=== PATIENT | female | born 1935 | race Caucasian/White ===

== ENCOUNTER → 2023-09-14 13:16 | Outpatient (BNVA) | payer MEDICARE, BC, SELFPAY | PROVIDERS: Visit Provider Internal Medicine Nephrology | DX: I12.9 Hypertensive chronic kidney disease with stage 1 through stage 4 chronic kidney disease, or unspecified chronic kidney disease (principal); N18.31 Chronic kidney disease, stage 3a; N28.89 Other specified disorders of kidney and ureter | CPT/HCPCS: 99212 ==

== ENCOUNTER 2023-09-14 13:49 | Outpatient (AMB) | payer MEDICARE, BC, SELFPAY ==
[2023-09-14 13:21] VITALS: BP 158/80; PULSE 74; O2SAT 97; BMI 38.4
--- NOTE | 2023-09-14 13:21 | HO.NEPHOV_ITS ---
HPI HPI Comments History of Present Illness Details I had the privilege of seeing Paola in follow-up of her chronic kidney disease and hypertension. She has recently had a pacemaker put in and ever since her energy levels are better. She is known to have renal mass and is closely followed up by Dr. Lebron. Her diltiazem and lisinopril had been discontinued. Her blood pressure had been a bit labile lately. She denies any chest pain, shortness of breath, paroxysmal nocturnal dyspnea, orthopnea, pedal edema, orthostatic symptoms, weight loss, night sweats, hematuria. She does not take any nonsteroidal anti-inflammatories. She was accompanied by her son during this visit. [facility] Medical History (Updated 09/14/23 @ 20:34 by George Ayala MD) Pacemaker (~07/2023) Hypertension Chronic kidney disease, stage 3b Family History (Updated 09/14/23 @ 13:26 by Valeria Andino) Father Hypertension Social History (Updated 09/14/23 @ 13:25 by Valeria Andino) Alcohol intake: never Vital Signs 09/14/23 13:21 Height 5 ft 5 in Weight 231 lb BMI 38.4 BP 158/80 H Blood Pressure Location Lt brachial Position Sitting Pulse 74 Pulse Source Pulse Oximeter Pulse Oximetry (%) 97 Oxygen Delivery Method Room Air Physical Exam Vital Signs: Last Vital Signs Pulse 74 09/14/23 13:21 BP 158/80 H 09/14/23 13:21 Pulse Ox 97 09/14/23 13:21 Oxygen Delivery Method Room Air 09/14/23 13:21 BMI result Body Mass Index 38.4 Const General: comfortable and no acute distress Orientation/consciousness: patient oriented x3 HEENT Head: Yes normocephalic Mouth: Normal oral and palatal mucosa present Eyes EOM: EOMs intact bilaterally Neck Neck: Yes supple Resp Auscultation: clear to auscultation bilaterally Cardio Jugular venous distension: no JVD Rate: regular rate GI Palpation (GI): Soft to palpation Auscultation: normal bowel sounds General: Yes no CVA tenderness Back/Spine/Pelvis Back: no CVA tenderness Skin General skin exam: no rashes or lesions noted Neuro General: patient oriented x3 and moves all extremities Extrem General: Yes no pedal edema Assessment & Plan Assessment & Plan (1) Hypertension: Code(s): I10 - Essential (primary) hypertension Qualifiers: Hypertension type: primary hypertension Qualified Code(s): I10 - Essential (primary) hypertension (2) CKD (chronic kidney disease) stage 3, GFR 30-59 ml/min: Code(s): N18.30 - Chronic kidney disease, stage 3 unspecified Qualifiers: Chronic kidney disease stage 3 subtype: stage 3a (GFR 45-59) Qualified Code(s): N18.31 - Chronic kidney disease, stage 3a (3) Renal mass: Code(s): N28.89 - Other specified disorders of kidney and ureter Louie Guevara has stage 3 chronic kidney disease. Her renal functions are pretty stable. Her blood pressure is not well controlled. She had been on DOLORES inhibitor and calcium channel julianne in the past which had been discontinued. She just takes metoprolol. She monitors her blood pressure pretty closely at home. She has lost significant weight. I started her on amlodipine 2.5 mg once daily. She closely follows up with the Dr. Lebron her urologist for her renal mass. She does not have any B symptoms. She has a pacemaker and her heart rate is well controlled. I did not make any other medication changes today. I reiterated the fact that we may have to adjust the dose of amlodipine if her blood pressure is not consistently at goal. I ordered follow-up blood work and follow-up appointment was given. Orders: Orders Blood Urea Nitrogen Today I10 - Essential (primary) hypertension, N18.30 - Chronic kidney disease, stage 3 unspecified Electrolytes Today I10 - Essential (primary) hypertension, N18.30 - Chronic kidney disease, stage 3 unspecified Creatinine Today I10 - Essential (primary) hypertension, N18.30 - Chronic kidney disease, stage 3 unspecified Medications: New amlodipine 2.5 mg PO DAILY 90 tabs 3RF Coding Level of Care Code Est Pt Level 4 (48671) Diagnoses Primary hypertension I10 Hypertension type: primary hypertension Stage 3a chronic kidney disease N18.31 Chronic kidney disease stage 3 subtype: stage 3a (GFR 45-59) Renal mass N28.89 Results Reviewed Nephrology Results: No Data to Display
== END 2023-09-14 14:13 | disposition home or self-care (01) ==
PROVIDERS: Visit Provider Internal Medicine Nephrology
DX: I10 Essential (primary) hypertension (principal); N18.31 Chronic kidney disease, stage 3a; N28.89 Other specified disorders of kidney and ureter
CPT/HCPCS: 99214

== ENCOUNTER 2023-12-28 13:35 | Outpatient (AMB) | payer MEDICARE, BC, SELFPAY ==
[2023-12-28 13:44] VITALS: BP 132/84; PULSE 98; O2SAT 96; BMI 38.4
--- NOTE | 2023-12-28 13:44 | HO.NEPHOV_ITS ---
Vital Signs 12/28/23 13:44 Height 5 ft 5 in Weight 231 lb BMI 38.4 BP 132/84 Blood Pressure Location Rt radial Position Sitting Pulse 98 Pulse Source Pulse Oximeter Pulse Oximetry (%) 96 Oxygen Delivery Method Room Air Intake Visit Reasons: 3 mon follow up/ Conf w/Son Nurse Consultant Required: No Accompanied by: Son Allergies adhesive tape Allergy (Verified 12/28/23 13:46) Unknown latex Allergy (Verified 12/28/23 13:46) Unknown Sulfa (Sulfonamide Antibiotics) Allergy (Verified 12/28/23 13:46) Unknown HPI Comments Details: I had the privilege of seeing Paola in follow-up of her chronic kidney disease and hypertension. She has recently had a pacemaker put in and ever since her energy levels are better. She is known to have renal mass and is closely followed up by Dr. Lebron. Her diltiazem and lisinopril had been discontinued. Her blood pressure had been a bit labile lately. She denies any chest pain, shortness of breath, paroxysmal nocturnal dyspnea, orthopnea, pedal edema, orthostatic symptoms, weight loss, night sweats, hematuria. She does not take any nonsteroidal anti-inflammatories. She was accompanied by her son during this visit. [facility] Medical History (Updated 09/14/23 @ 20:34 by George Ayala MD) Pacemaker (~07/2023) Hypertension Chronic kidney disease, stage 3b Family History Father Hypertension Social History Alcohol intake: never Physical Exam Vital Signs: Last Vital Signs Pulse 98 12/28/23 13:44 BP 132/84 12/28/23 13:44 Pulse Ox 96 12/28/23 13:44 Oxygen Delivery Method Room Air 12/28/23 13:44 BMI result Body Mass Index 38.4 Const General: comfortable and no acute distress Orientation/consciousness: patient oriented x3 HEENT Head: Yes normocephalic Mouth: Normal oral and palatal mucosa present Eyes EOM: EOMs intact bilaterally Neck Neck: Yes supple Resp Auscultation: clear to auscultation bilaterally Cardio Jugular venous distension: no JVD Rate: regular rate GI Palpation (GI): Soft to palpation Auscultation: normal bowel sounds General: Yes no CVA tenderness Back/Spine/Pelvis Back: no CVA tenderness Skin General skin exam: no rashes or lesions noted Neuro General: patient oriented x3 and moves all extremities Extrem General: Yes no pedal edema Results Reviewed Nephrology Results: No Data to Display Assessment & Plan Assessment & Plan (1) CKD (chronic kidney disease) stage 3, GFR 30-59 ml/min: Code(s): N18.30 - Chronic kidney disease, stage 3 unspecified Category: Medical Qualifiers: Chronic kidney disease stage 3 subtype: stage 3a (GFR 45-59) Qualified Code(s): N18.31 - Chronic kidney disease, stage 3a (2) Hypertension: Code(s): I10 - Essential (primary) hypertension Category: Medical Qualifiers: Hypertension type: primary hypertension Qualified Code(s): I10 - Essential (primary) hypertension (3) Renal mass: Code(s): N28.89 - Other specified disorders of kidney and ureter Category: Medical Plan Paola has stage 3 chronic kidney disease. Her renal functions are pretty stable. Her blood pressure is not well controlled. She had been on DOLORES inhibitor and calcium channel julianne in the past which had been discontinued. She just takes metoprolol. She monitors her blood pressure pretty closely at [facility]. She has lost significant weight. She should continue on amlodipine 2.5 mg once daily. She closely follows up with the Dr. Lebron her urologist for her renal mass ( has an appointment in Feb ). She does not have any B symptoms. She has a pacemaker and her heart rate is well controlled. I did not make any other medication changes today. I ordered follow-up blood work and follow-up appointment was given. Orders: Orders Creatinine Today I10 - Essential (primary) hypertension, N18.31 - Chronic kidney disease, stage 3a, N28.89 - Other specified disorders of kidney and ureter Electrolytes Today I10 - Essential (primary) hypertension, N18.31 - Chronic kid conor disease, stage 3a, N28.89 - Other specified disorders of kidney and ureter Blood Urea Nitrogen Today I10 - Essential (primary) hypertension, N18.31 - Chronic kidney disease, stage 3a, N28.89 - Other specified disorders of kidney and ureter Coding Level of Care Code Est Pt Level 4 (88498) Diagnoses Stage 3a chronic kidney disease N18.31 Chronic kidney disease stage 3 subtype: stage 3a (GFR 45-59) Primary hypertension I10 Hypertension type: primary hypertension Renal mass N28.89
== END 2023-12-28 14:21 | disposition home or self-care (01) ==
PROVIDERS: Visit Provider Internal Medicine Nephrology
DX: N18.31 Chronic kidney disease, stage 3a (principal); I10 Essential (primary) hypertension; N28.89 Other specified disorders of kidney and ureter
CPT/HCPCS: 99214

== ENCOUNTER → 2023-12-28 13:35 | Outpatient (BNVA) | payer MEDICARE, BC, SELFPAY | PROVIDERS: Visit Provider Internal Medicine Nephrology | DX: I12.9 Hypertensive chronic kidney disease with stage 1 through stage 4 chronic kidney disease, or unspecified chronic kidney disease (principal); N18.31 Chronic kidney disease, stage 3a; N28.89 Other specified disorders of kidney and ureter | CPT/HCPCS: 99212 ==

== ENCOUNTER 2024-07-30 11:30 | Outpatient (AMB) | payer MEDICARE, BC, SELFPAY ==
--- NOTE | 2024-07-30 11:41 | HO.NEPHOV ---
Vital Signs 07/30/24 11:42 Height 5 ft 5 in Weight 240 lb BMI 39.9 BP 160/90 H Blood Pressure Location Lt brachial Position Sitting Pulse 99 Pulse Source Pulse Oximeter Pulse Oximetry (%) 96 Oxygen Delivery Method Room Air Intake Visit Reasons: follow up/ [facility] Human Services Manager Required: No Accompanied by: Son Allergies adhesive tape Allergy (Verified 07/30/24 11:42) Unknown latex Allergy (Verified 07/30/24 11:42) Unknown Sulfa (Sulfonamide Antibiotics) Allergy (Verified 07/30/24 11:42) Unknown HPI Comments Details: I had the privilege of seeing Paola in follow-up of her chronic kidney disease and hypertension. She had a pacemaker put in and ever since her energy levels are better. She is known to have renal mass and is closely followed up by Dr. Lebron. Her blood pressure had been a bit labile lately. She denies any chest pain, shortness of breath, paroxysmal nocturnal dyspnea, orthopnea, pedal edema, orthostatic symptoms, weight loss, night sweats, hematuria. She does not take any nonsteroidal anti-inflammatories. She was accompanied by her son during this visit. [facility] Medical History (Updated 09/14/23 @ 20:34 by George Ayala MD) Pacemaker (~07/2023) Hypertension Chronic kidney disease, stage 3b Family History Father Hypertension Social History Alcohol intake: never Review of Systems Const All systems reviewed & are unremarkable except as noted in HPI and below Physical Exam Vital Signs: Last Vital Signs Pulse 99 07/30/24 11:42 BP 160/90 H 07/30/24 11:42 Pulse Ox 96 07/30/24 11:42 Oxygen Delivery Method Room Air 07/30/24 11:42 BMI result Body Mass Index 39.9 Const General: comfortable and no acute distress Orientation/consciousness: patient oriented x3 HEENT Head: Yes normocephalic Mouth: Normal oral and palatal mucosa present Eyes EOM: EOMs intact bilaterally Neck Neck: Yes supple Resp Auscultation: clear to auscultation bilaterally Cardio Jugular venous distension: no JVD Rate: regular rate GI Palpation (GI): Soft to palpation Auscultation: normal bowel sounds General: Yes no CVA tenderness Back/Spine/Pelvis Back: no CVA tenderness Skin General skin exam: no rashes or lesions noted Neuro General: patient oriented x3 and moves all extremities Extrem General: Yes no pedal edema Results Reviewed Nephrology Results: No Data to Display Assessment & Plan Assessment & Plan (1) CKD (chronic kidney disease) stage 3, GFR 30-59 ml/min: Code(s): N18.30 - Chronic kidney disease, stage 3 unspecified Category: Medical Qualifiers: Chronic kidney disease stage 3 subtype: stage 3a (GFR 45-59) Qualified Code(s): N18.31 - Chronic kidney disease, stage 3a (2) Hypertension: Code(s): I10 - Essential (primary) hypertension Category: Medical Qualifiers: Hypertension type: primary hypertension Qualified Code(s): I10 - Essential (primary) hypertension (3) Renal mass: Code(s): N28.89 - Other specified disorders of kidney and ureter Category: Medical Plan Paola has stage 3 chronic kidney disease. Her renal functions are pretty stable. Her blood pressure is not well controlled. She just takes metoprolol. She monitors her blood pressure pretty closely at home. She should continue on amlodipine 2.5 mg once daily. She closely follows up with the Dr. Lebron her urologist for her renal mass ( has an appointment in Feb ). She does not have any B symptoms. She has a pacemaker and her heart rate is well controlled. I did not make any other medication changes today. I ordered follow-up blood work and follow-up appointment was given. Orders: Orders Electrolytes 6 Months I10 - Essential (primary) hypertension, N18.31 - Chronic kidney disease, stage 3a, N28.89 - Other specified disorders of kidney and ureter Creatinine 6 Months I10 - Essential (primary) hypertension, N18.31 - Chronic kidney disease, stage 3a, N28.89 - Other specified disorders of kidney and ureter Blood Urea Nitrogen 6 Months I10 - Essential (primary) hypertension, N18.31 - Chronic kidney disease, stage 3a, N28.89 - Other specified disorders of kidney and ureter Medications: Refilled amlodipine 2.5 mg PO DAILY 90 tabs 3RF Coding Level of Care Code Est Pt Level 4 (11064) Diagnoses Stage 3a chronic kidney disease N18.31 Chronic kidney disease stage 3 subtype: stage 3a (GFR 45-59) Primary hypertension I10 Hypertension type: primary hypertension Renal mass N28.89
[2024-07-30 11:42] VITALS: BP 160/90; PULSE 99; O2SAT 96; BMI 39.9
--- OUTSIDE RECORDS SUMMARY | 2024-07-30 12:43 | XMS_ITS ---
Author Name [facility] Organization Unknown Results Test Name/Text Value Interpretation Date Range Source Troponin T SerPl-mCnc 11ng/L Normal [id number] - 15 [facility] Delta 1 Normal [id number] - 3 [facility] Troponin T SerPl-mCnc 12ng/L Normal [id number] - 15 [facility] Delta Normal [id number] - 3 [facility] Globulin Ser Calc-mCnc 3.5g/dL Normal [id number] 1.5 - 3.9 [facility] ALT SerPl-cCnc 43U/L Normal [id number] 10 - 50 [facility] CCT AST SerPl-cCnc 31U/L Normal [id number] 10 - 50 [facility] CCT GFR/BSA.pred SerPlBld VUC-WCS-MhDBra 49 Below low normal [id number] 59 - [facility] Albumin SerPl-mCnc 3.8g/dL Normal [id number] 3.4 - 4. 8 [facility] Albumin/Glob SerPl 1.1Ratio Normal [id number] 1 - 3 [facility] Creat SerPl-mCnc 1.1mg/dL Normal [id number] 0.4 - 1.1 [facility] Bilirub SerPl-mCnc 1mg/dL Normal [id number] 0.2 - 1 [facility] Anion Gap Bld-sCnc 14 Normal [id number] 7 - 17 [facility] Sodium SerPl-sCnc 141mmol/L Normal [id number] 136 - 145 [facility] Potassium SerPl-sCnc 4.7mmol/L Normal [id number] 3.4 - 5.3 [facility] Chloride SerPl-sCnc 100mmol/L Normal [id number] 98 - 10 7 [facility] Glucose SerPl-mCnc 130mg/dL Above high normal [id number] 65 - 99 [facility] Prot SerPl-mCnc 7.3g/dL Normal [id number] 6.3 - 8.3 H [facility] BUN/Creat SerPl 28Ratio Above high normal [id number] 10 - 25 [facility] Calcium SerPl-mCnc 10.1mg/dL Normal [id number] 8.7 - 10 .5 [facility] CO2 SerPl-sCnc 27mmol/L Normal [id number] 22 - 33 HH CCT BUN SerPl-mCnc 31mg/dL Above high normal [id number] 8 - 21 [facility] ALP SerPl-cCnc 149U/L Above high normal [id number] 32 - 122 [facility] Imm Granulocytes/leuk NFr Bld Auto 0.3% Normal [id number] [facility] Lymphocytes/leuk NFr Bld Auto 19.5% Normal [id number] [facility] PMV Bld Auto 10.9fL Normal [id number] 7.5 - 12.[address] Monocytes num Bld Auto 0.6Thou/uL Normal [id number] 0.2 - 1.5 [facility] Hct VFr Bld Auto 49.8% Above high normal [id number] 35 - 47 [facility] Neutrophils num Bld Auto 6.18Thou/uL Normal [id number] 2 - 7.5 [facility] Neutrophils/leuk NFr Bld Auto 69.7% Normal [id number] [facility] Basophils/leuk NFr Bld Auto 0.7% Normal [id number] [facility] Basophils num Bld Auto 0.06Thou/uL Normal [id number] 0 - 0.2 [facility] Monocytes/leuk NFr Bld Auto 6.8% Normal [id number] [facility] Eosinophil num Bld Auto 0.27Thou/uL Normal [id number] 0 - 0.7 [facility] MCH RBC Qn Auto 32.4pg Above high normal [id number] 27 - 31 [facility] Eosinophil/leuk NFr Bld Auto 3% Normal [id number] [facility] Imm Granulocytes num Bld Auto 0.03Thou/uL Normal [id number] 0 - 0.1 [facility] RDW RBC Auto-Rto 13.1% Normal [id number] 11.5 - 14. 5 [facility] Platelet num Bld Auto 222Thou/uL Normal [id number] 150 - 450 [facility] MCHC RBC Auto-mCnc 33.7g/dL Normal [id number] 30 - 36 [facility] MCV RBC Auto 96fL Normal 910510620804 80 - 100 [facility] T WBC num Bld Auto 8.9Thou/uL Normal [id number] 4 - 11 [facility] RBC num Bld Auto 5.19Mil/uL Normal [id number] 4 - 5.4 [facility] Hgb Bld-mCnc 16.8g/dL Above high normal [id number] 11.7 - 15.7 [facility] Lymphocytes num Bld Auto 1.73Thou/uL Normal [id number] 1.5 - 4.5 [facility] POC Glucose 128mg/dL Above high normal [id number] 65 - 99 [facility] TROPONIN I HIGH SENSITIVE 33.48ng/L Normal [id number] 0 - 54 [facility] PRO B-TYPE NATRIURETIC PEPTIDE 2051pg/mL Above high normal [id number] 0 - 1800 [facility] SODIUM 139mmol/L Normal [id number] 136 - 145 [facility] 142mg/dL Above high normal [id number] 74 - 100 [facility] BUN 47mg/dL Above high normal [id number] 7 - 18 [facility] CHLORIDE 105mmol/L Normal [id number] 98 - 107 [facility] POTASSIUM SERUM 4.5mmol/L Normal [id number] 3.5 - 5.1 [facility] CO2 25mmol/L Normal [id number] 21 - 32 [facility] H CREATININE 1.47mg/dL Above high normal [id number] 0.55 - 1 .3 [facility] GFRE 36 Below low normal 476133859623 60 - [facility] TROPONIN I HIGH SENSITIVE 31.39ng/L Normal [id number] 0 - 54 [facility] PROTIME 15.2secs Above high normal [id number] 9 - 13 [facility] INR 1.4 Normal [id number] [facility] H WBC 11.2K/uL Above high normal [id number] 3.7 - 10. 3 [facility] ABSOLUTE GRANULOCYTES 9K/uL Above high normal [id number] 2.2 - 7.3 [facility] ABSOLUTE BASO 0.1K/uL Normal [id number] 0 - 0.2 [facility] RBC 5.19M/uL Normal [id number] 4 - 5.4 [facility] H IMMATURE GRANULOCYTES 0% Normal [id number] 0 - 0.45 [facility] EOSINOPHILS 1% Normal [id number] 0 - 6 [facility] MPV 11fL Normal [id number] 8 - 12 [facility] H ABSOLUTE MONOS 0.8K/uL Normal [id number] 0.2 - 1.5 CT [facility] BASOPHILS 1% Normal [id number] 0 - 2 [facility] H NUCLEATED RBC 0% Normal [id number] 0 - 0.2 [facility] MCV 93fL Normal [id number] 83 - 102 [facility] H MCH 31PG Normal [id number] 27 - 34 [facility] H HCT 48.5% Above high normal [id number] 36 - 46 [facility] ABSOLUTE LYMPHS 1.2K/uL Below low normal [id number] 1.5 - 4.9 [facility] GRANULOCYTES 80% Above high normal [id number] 23 - 7 8 [facility] MONOC[facility] 7% Normal [id number] 0 - 12 [facility] H ABSOLUTE EOS 0.1K/uL Normal [id number] 0 - 0.7 [facility] LYMPHS 11% Below low normal [id number] 16 - 50 [facility] ABSOLUTE IMMATURE GRANULOCYTES 0.1K/uL Normal [id number] 0 - 0.3 [facility] HGB 16.3g/dL Above high normal [id number] 12.1 - 15 .7 [facility] RDW 13.2% Normal [id number] 11.1 - 13.3 [facility] PLATELET COUNT 245K/uL Normal [id number] 150 - [address] [facility] MCHC 33.6g/dL Normal [id number] 31 - 36 [facility] H ABSOLUTE NUCLEATED RBC 0K/uL Normal [id number] 0 - 0.012 [facility] PATIENT FASTING? UNKNOWN Normal [id number] [facility] EPI CELLS 1+ Normal [id number] [facility] H MUCOUS PRESENT Critically abnormal [id number] - [facility] BACTERIA 1+ Critically abnormal [id number] - [facility] RBC 0/HPF Normal [id number] 0 - 0 [facility] H WBC 4/HPF Above high normal [id number] 0 - 0 [facility] BLOOD NEG Normal [id number] - [facility] H SPECIFIC GRAVITY 1.015 Normal [id number] 1.005 - 1. 03 [facility] UROBILINOGEN 0.2MG/DL Normal [id number] - [facility] NITRITE NEG Normal [id number] - [facility] H LEUK. ESTERASE SMALL Critically abnormal [id number] - [facility] GLUCOSE NEG Normal [id number] - [facility] H APPEARANCE CLEAR Normal [id number] - [facility] BILIRUBIN NEGATIVE Normal [id number] - [facility] H PROTEIN NEG Normal [id number] - [facility] H COLOR YELLOW Normal [id number] - [facility] H KETONES NEGATIVE Normal [id number] - [facility] H PH 6 Normal [id number] 5 - 8 [facility] H
--- OUTSIDE RECORDS SUMMARY | 2024-07-30 12:43 | XMS_ITS | Clinical Summary ---
Author Organization [address] [place] [address] [place] [phone] Phone Care Team Providers Care Principal Trainer Name Role Phone Yuki Corona MD Primary Care Provider [phone] Allergies Active Allergy Reactions Criticality Noted Date Comments Adhesive Tape-Silicones 03/15/2021 Adhesive Bandage Latex 03/15/2021 Sulfa (Sulfonamide Antibiotics) 09/2020 Medications metoprolol succinate (TOPROL-XL) 100 mg 24 hr tabletIndications :Sick sinus syndrome (CMS/HCC),Permane nt atrial fibrillation (CMS/HCC) TAKE 1 TABLET BY MOUTH EVERY DAY 90 tablet 3 4 Active amLODIPine (NORVASC) 2.5 mg tablet Take 1 Tablet by mouth daily. Active apixaban (Eliquis) 5 mg tablet Take 1 Tablet by mouth 2 times daily. 4 Active atorvastatin (LIPITOR) 20 mg tablet Take 20 mg by mouth daily. Active cholecalciferol (VITAMIN D-3) 25 mcg (1,000 unit) capsule Take 1 Capsule by mouth three times a week. Active Active Problems Problem Noted Date Diagnosed Date Elevated alkaline phosphatase level 08/17/2023 Pulmonary hypertension 08/17/2023 Pre-syncope 08/17/2023 Tachy-shaun syndrome 07/19/2023 CHF (congestive heart failure) 10/18/2022 Elevated troponin 10/18/2022 Lower extremity edema 10/18/2022 Overview (05/17/2024): Last Assessment & Plan: Her leg edema has been better now that she is lost weight. Again we trialed her on a diuretic and this worsened her kidney function. We will continue to monitor this off her diuretic. Dizzy 08/05/2022 Overview (05/17/2024): Last Assessment & Plan: We did discuss her dizzy spell. It is unclear what caused this. She did not sleep well the night before and this could have contributed to her symptoms. She does run a low heart rate and because of this have asked her to update a Holter monitor to further evaluate this. Her blood pressures have been stable and we will continue to monitor. Hypercholesterolemia 02/01/2022 HERIBERTO (obstructive sleep apnea) 07/30/2021 Overview (05/17/2024): Last Assessment & Plan: We did discuss her sleep apnea. It appears that this is been untreated. We did discuss the potential risks and consequences of untreated sleep apnea. She states that she was not able to wear the mask in the past. We did discuss that her our other pieces of equipment that she may be able to use. I have offered sending her for a repeat study or for an evaluation with a sleep specialist. She would like to think about it at this time and will let us know.She does understand the risk of untreated sleep apnea. Diabetes mellitus with stage 3 chronic kidney di sease 07/29/2021 Venous insufficiency 07/29/2021 Overview (05/17/2024): Last Assessment & Plan: Her leg edema has been better now that she is lost weight. Again we trialed her on a diuretic and this worsened her kidney function. We will continue to monitor this off her diuretic. Secondary peripheral vascular disease 07/29/2021 Atrial fibrillation 03/15/2021 Overview (05/17/2024): Last Assessment & Plan: Her atrial fibrillation has been well controlled. She is doing well on her Eliquis. We did do a Holter monitor which showed occasionally low heart rates. She did meet with Dr. Ricardo for evaluation. It was suggested that she have a implantable loop recorder placed. She has not had this done. She states that the office never called to set her up for this. I have ordered this for her so we can move forward with this. She is in agreement to having it done. She does understand the benefit of doing this. Diabetes mellitus 03/15/2021 Hypertension 03/15/2021 Overview (05/17/2024): Last Assessment & Plan: Her blood pressure is under good control on her current medications. We will continue her on these. She will continue on her lisinopril she is followed by Dr. Osborn for her kidney disease. LBBB (left bundle branch block) 03/15/2021 Overview (05/17/2024): Last Assessment & Plan: This is been stable. We will continue to monitor. Morbid obesity 03/15/2021 Bradycardia 12/25/2020 Overview (05/17/2024): Last Assessment & Plan: She does have a history of bradycardia. Of asked her to update a Holter monitor to make sure she is not having more significant bradycardia or bradycardia arrhythmia since her last Holter monitor done in 2020. Especially in light of the episode she had presyncope. I do not want to just decrease her diltiazem or metoprolol as she has had difficult to control hypertension. Chest pain 12/25/2020 Overview (05/17/2024): Last Assessment & Plan: We did discuss her chest discomfort. She has not had any since then. We will continue to monitor. She has any more she will let us know Encounters Date Type Department Care Team Description 07/16/2024 12:40 PM EST Office Visit [facility] [address] [place] [address] Justine Gomez PA Chest pain, unspecified type (Primary Dx); Permanent atrial fibrillation (CMS/HCC); Primary hypertension; LBBB (left bundle branch block); Pre-syncope; Tachy-shaun syndrome (CMS/HCC) 07/02/2024 8:20 AM EST Ancillary Procedure [facility] [address] [place] [address] 06/21/2024 Telephone [facility] [address] [facility] [address] [place] [phone] Justine Gomez PA er stay 05/28/2024 2:15 AM EST Ancillary Procedure [facility] [address] [facility] [address] [place] [address] from Last 3 Months Surgical History Surgery Date Site/Laterality Comments CHOLECYSTECTOMY PROCEDURE: HISTORICAL CHOLECYSTECTOMY OTHER SURGICAL HISTORY PROCEDURE: SKIN CYST; COMMENT: benign breast cyst removal BREAST BIOPSY Left PROCEDURE: [place] BIOPSY BREAST OPEN INCISIONAL; COMMENT: benign VAGINAL DELIVERY PROCEDURE: HISTORICAL VAGINAL DELIVERY INSERT / REPLACE / REMOVE PACEMAKER Medical History Medical History Date Comments CKD (chronic kidney disease) , stage III (CMS/HCC) DX:CKD (chronic kidney disea se), stage III (HCC) Obesity DX:Obesity Peripheral vascular disease (CMS/HCC) DX:Peripheral vascular disease (HCC) Vitamin D deficiency DX:Vitamin D deficiency Elevated alkaline phosphatase level DX:Elevated alkaline phosphatase level Diabetes mellitus with stage 3 chronic kidney disease (CMS/HCC) DX:Diabetes mellitus with st age 3 chronic kidney disease (HCC) Morbid obesity (CMS/HCC) DX:Morb id obesity (HCC) Stasis dermatitis DX:Stasis derm atitis Abnormal findings on diagnos tic imaging of breast DX:Abnormal findings on diag nostic imaging of breast; COMMENT: historical History of miscarriage DX:Histor y of miscarriage History of renal insufficiency syndrome DX:History of renal insufficiency syndrome Severe obesity (CMS/HCC) DX:Daniela re obesity (HCC) Venous insufficiency DX:Venous i nsufficiency Miscarriage DX:Miscarriage Renal insufficiency syndrome DX: Renal insufficiency syndrome Hyperkalemia DX:Hyperkalemia 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 (CMS/HCC) DX:Type 2 diabetes mellitus with peripheral vascular disease (HCC) Family History Medical History Relation Name Comments Breast cancer Aunt Maternal Coronary artery disease Father Heart attack Father Stroke Mother Breast cancer Other Mat. Cousin Relation Name Status Comments Aunt Maternal Father Mother Other Mat. Cousin Social History Tobacco Use Types Packs/Day Years Used Date Smoking Tobacco: Former Smokeless Tobacco: Never Alcohol Use Standard Drinks/Week Comments Never 0 (1 standard drink = 0.6 oz pur e alcohol) Comments Unknown Sex and Gender Information Value Date Recorded Sex Assigned at Not on file Legal Sex Female 11:43 AM EST Gender Identity Not on file Sexual Orientation Not on file Obstetrics History Last Filed Vital Signs Vital Sign Reading Time Taken Comments Blood Pressure 128/76 07/16/2024 1:05 PM EST Pulse 85 07/16/2024 12:45 PM EST Temperature - - Respiratory Rate - - Oxygen Saturation 98% 07/16/2024 12:45 PM EST Inhaled Oxygen Concentration - - Weight 111 kg (245 lb) 07/16/2024 12:45 PM EST Height 167 cm (5' 5.75 ) 07/16/2024 12:45 PM EST Body Mass Index 39.85 07/16/2024 12:45 PM EST Plan of Treatment Upcoming Encounters Date Type Department Care Team (Late st Contact Info) Description 08/29/2024 1:00 PM EDT Ancillary Procedure [facility] [address] [place] [address] 01/21/2025 1:10 PM EDT Office Visit [facility] [address] [place] [address] Justine Gomez PA [address] [place] [address] [id number] Health Maintenance Due Date Last Done Comments Diabetes: Annual Foot Exam 1945 Diabetes: Annual Retina Eye Exam 1945 RSV Immunization Patients 60+ Years Old (1 - 1-dose 75+ series) 2012 Zoster Vaccines (1 of 2) 06/24/2014 04/29/2014 DTaP,Tdap,and Td Vaccines (3 - Td or Tdap) 09/10/2020 09/10/2010, 11/10/2000 Cholesterol Screening (Lipid Panel) 05/10/2022 Depression Screening 05/10/2022 Falls Risk Assessment 05/10/2022 Medicare Annual Wellness Visit 05/10/2022 Osteoporosis Screening (Bone Density Screening) 05/10/2022 Social Influencers of Health Screening 05/10/2022 Hypertension/CHF/CAD Annual BMP Blood Test 05/21/2022 Diabetes: Blood Sugar Control Test (HGBA1C) 05/27/2022 COVID-19 Vaccine ( season) 2024 09/27/2021, 03/09/2021, 07/22/2020, Additional history exists Influenza Vaccine (#1) 2024 , 02/18/2020, 03/11/2019, Additional history exists Pneumococcal Vaccine: 50+ Years Completed 10/17/2014, 06/12/2002 HIB Vaccines Aged Out No longer eligi ble based on patient's age to complete this topic HPV Vaccines Aged Out No longer eligi ble based on patient's age to complete this topic Hepatitis A Vaccines Aged Out No long er eligible based on patient's age to complete this topic Hepatitis B Vaccines Aged Out No long er eligible based on patient's age to complete this topic IPV Vaccines Aged Out No longer eligi ble based on patient's age to complete this topic MMR Vaccines Aged Out No longer eligi ble based on patient's age to complete this topic Meningococcal ACWY Vaccine Aged Out N o longer eligible based on patient's age to complete this topic Meningococcal B Vacine Aged Out No lo nger eligible based on patient's age to complete this topic RSV Immunization Patients Under 20 months Aged Out No longer eligible based on patient's age to complete this topic Varicella Vaccines Aged Out No longer eligible based on patient's age to complete this topic Medical Devices Implanted Type Area Hog Room Supervisor Device Identifier Shelf Expiration Date Model / Serial / Lot Medt-Card [id number] Implanted:01/2024 (Quantity not on file) Cardiac Pacemaker [employer] - CARDIAC RHYTH-CRDM [id number] / [id number] / Procedures Procedure Name Priority Date/Time Associated Diagnosis Comments ECG 12-LEAD Routine 07/16/2024 1:10 PM EST Chest pain, unspecified type CARDIAC DEVICE CHECK- REMOTE- MURJ Routine 07/02/2024 8:19 AM EST CARDIAC DEVICE CHECK- REMOTE- MURJ Routine 05/28/2024 2:13 AM EST from Last 3 Months Results * ECG 12 lead (07/16/2024 1:10 PM EST) Ventricular Rate ECG 85 BPM GEMUSE Atrial Rate 85 BPM GEMUSE QRS Duration 150 ms GEMUSE Q-T Interval 406 ms GEMUSE QTc 483 ms GEMUSE R [place] 86 degrees GEMUSE T [place] -49 degrees GEMUSE ECG Interpretation afib V paced Left bundle branch block Abnormal ECG When compared with ECG of 21-JUL-2023 08:45, Confirmed by IRINA RICARDO ([id number]) on 07/18/2024 9:18:12 AM GEMUSE 07/16/2024 12:5 1 PM EST 07/18/2024 9:18 AM EST us Justine QUICK ECG ORDERABLES Edited Result - Final GEMUSE * Cardiac device check - Remote- MURJ (07/02/2024 8:19 AM EST) Only the most recent of2 resultswithin the time period is included. Date Time Interrogation Session [id number] CV DEVICE CHECK Type Interrogation Session Remote CV DEVICE CHECK Implantable Pulse Generator Hog Room Supervisor MDT CV DEVICE CHECK Implantable Pulse Generator Type IPG CV DEVICE CHECK Implantable Pulse Generator Model [id number] CV DEVICE CHECK Implantable Pulse Generator Serial Number [id number] CV DEVICE CHECK Implantable Pulse Generator Implant Date 20230720 CV DEVICE CHECK Battery Remaining Longevity 96.0 CV DEVICE CHECK Battery Voltage 3.020 CV D EVICE CHECK Battery PARTY COORDINATOR Trigger 2.558 CV DEVICE CHECK Battery Status Middle of Service CV DEVICE CHECK Shaun Statistic RV Percent Paced 92.55 CV DEVICE CHECK Lead Channel Sensing Intrinsic Amplitude 7.988 CV DEVICE CHECK Lead Channel Setting Sensing Sensitivity 2.00 CV DEVICE CHECK Lead Channel Impedance Value 520 CV DEVICE CHECK Lead Channel Pacing Threshold Amplitude 0.500 CV DEVICE CHECK Lead Channel Pacing Threshold Pulse Width 0.2 CV DEVICE CHECK Lead Channel RV Pacing Threshold Date 2024-06-21 CV DEVICE CHECK Lead Channel Setting Pacing Amplitude 1.000 CV DEVICE CHECK Lead Channel Setting Pacing Pulse Width 0.2 CV DEVICE CHECK Shaun Setting Mode (NBG Code) VVIR CV DEVICE CHECK Shaun Setting Lower Rate Limit 60 CV DEVICE CHECK Shaun Setting Maximum Sensor Rate 120 CV DEVICE CHECK Date of Service 2024-08-26 CV DEVICE CHECK Anatomical Region Laterality Modality Device Interroga tion 06/21/2024 11:4 9 AM EST Impressions 07/02/2024 8:06 AM EST Normal Remote: No Events * Normal Device Function * Alerts or events: None * Battery: OK, 8.00 yrs * Sensing, impedance and thresholds reviewed * Programmed parameters reviewed * Presenting rhythm reviewed * Heart Rate Histograms reviewed * No significant changes noted Narrative Procedure Note Fernanda Ricardo MD - 07/02/2024 IMPRESSION: Normal Remote: No Events * Normal Device Function * Alerts or events: None * Battery: OK, 8.00 yrs * Sensing, impedance and thresholds reviewed * Programmed parameters reviewed * Presenting rhythm reviewed * Heart Rate Histograms reviewed * No significant changes noted Fernanda Ricardo MD CV IMPLANTABLE CARDIAC DEV ICE PROCEDURES Final Result from Last 3 Months Insurance MEDICARE [facility] Care Teams Principal Trainer Relationship Specialty Start Date End Date Yuki Corona MD [address] [place] [address] PCP - General Internal Medicine 01/18/21
--- OUTSIDE RECORDS SUMMARY | 2024-07-30 12:43 | XMS_ITS | Clinical Summary ---
Author Organization [facility] Address [address] [place] [address] Care Team Providers Care Hearing And Speech Assistant Name Role Phone Deven Estrella MD Primary Care Provider [phone] Medications Pantoprazole Sodium (PROTONIX) 20 MG EC tablet TAKE 1 TABLET BY MOUTH EVERY DAY FOR 30 DAYS 30 0 12/25/2020 Active Active Problems Problem Noted Date Diagnosed Date Bilateral impacted cerumen 03/08/2021 Chronic eczematous otitis externa of both ears 0 01/27/2020 Cerumen impaction 11/14/2017 Social History Tobacco Use Types Packs/Day Years Used Date Smoking Tobacco: Never Assessed Comments Unknown Sex and Gender Information Value Date Recorded Sex Assigned at Not on file Legal Sex Female 6:02 PM EDT Gender Identity Not on file Sexual Orientation Not on file Plan of Treatment Health Maintenance Due Date Last Done Comments DTaP/Tdap/Td (1 - Tdap) 1955 Pneumococcal 50+ years (1 of 1 - PCV) 1987 Zoster (Shingrix) (1 of 2) 1987 Bone Density 2002 RSV (1 - 1-dose 75+ series) 2012 COVID-19 Vaccine (2023-2 5 season) 2024 Influenza (#1) 2024 HPV Vaccine Aged Out No longer eligi ble based on patient's age to complete this topic Hep A Aged Out No longer eligi ble based on patient's age to complete this topic Hep B Aged Out No longer eligi ble based on patient's age to complete this topic Hib Aged Out No longer eligi ble based on patient's age to complete this topic Mammogram/Breast Imaging Discontinued Meningococcal ACWY Aged Out No longer eligible based on patient's age to complete this topic Pap Smear Discontinued Zoster (Zostavax) Discontinued Care Teams Hearing And Speech Assistant Relationship Specialty Start Date End Date Deven Estrella MD [address] [place] [address] PCP - General 01/16/23
--- OUTSIDE RECORDS SUMMARY | 2024-07-30 12:43 | XMS_ITS | Encounter Summary ---
Author Organization [facility] Address [address] [place] [address] Care Team Providers Care Parts Counter Sales Person Name Role Phone Yuki Corona MD Primary Care Provider [phone] Encounter Details Date Type Department Care Team (Late st Contact Info) Description 07/02/2024 8:20 AM EST Ancillary Procedure [facility] [address] [place] [address] Social History Tobacco Use Types Packs/Day Years Used Date Smoking Tobacco: Former Smokeless Tobacco: Never Alcohol Use Standard Drinks/Week Comments Never 0 (1 standard drink = 0.6 oz pur e alcohol) Comments Unknown Sex and Gender Information Value Date Recorded Sex Assigned at Not on file Legal Sex Female 11:43 AM EST Gender Identity Not on file Sexual Orientation Not on file documented as of this encounter Plan of Treatment Upcoming Encounters Date Type Department Care Team (Late st Contact Info) Description 08/29/2024 1:00 PM EDT Ancillary Procedure [facility] [address] [place] [address] 01/21/2025 1:10 PM EDT Office Visit [facility] [address] [place] [address] Justine Gomez PA [address] [place] [address] documented as of this encounter Procedures Procedure Name Priority Date/Time Associated Diagnosis Comments CARDIAC DEVICE CHECK- REMOTE- MURJ Routine 07/02/2024 8:19 AM EST documented in this encounter Results * Cardiac device check - Remote- MURJ (07/02/2024 8:19 AM EST) Date Time Interrogation Session [id number] CV DEVICE CHECK Type Interrogation Session Remote CV DEVICE CHECK Implantable Pulse Generator Artificial Breeding Distributor MDT CV DEVICE CHECK Implantable Pulse Generator Type IPG CV DEVICE CHECK Implantable Pulse Generator Model [id number] CV DEVICE CHECK Implantable Pulse Generator Serial Number [id number] CV DEVICE CHECK Implantable Pulse Generator Implant Date 20230720 CV DEVICE CHECK Battery Remaining Longevity 96.0 CV DEVICE CHECK Battery Voltage 3.020 CV D EVICE CHECK Battery ELEMENT BURNER Trigger 2.558 CV DEVICE CHECK Battery Status [...] significant changes noted Narrative Procedure Note Fernanda Keyes MD - 07/02/2024 IMPRESSION: Normal Remote: No Events * Normal Device Function * Alerts or events: None * Battery: OK, 8.00 yrs * Sensing, impedance and thresholds reviewed * Programmed parameters reviewed * Presenting rhythm reviewed * Heart Rate Histograms reviewed * No significant changes noted Fernanda Keyes MD CV IMPLANTABLE CARDIAC DEV ICE PROCEDURES Final Result documented in this encounter Visit Diagnoses Not on filedocumented in this encounter Care Teams Parts Counter Sales Person Relationship Specialty Start Date End Date Yuki Corona MD [address] [place] [address] PCP - General Internal Medicine 01/18/21 documented as of this encounter
--- OUTSIDE RECORDS SUMMARY | 2024-07-30 12:43 | XMS_ITS | Clinical Summary ---
Author Organization [facility] Address [address] [facility] [address] [place] [address] Phone Care Team Providers Care Grey Stock Recorder Name Role Phone Tati Corona MD Primary Care Provider [phone] Allergies Active Allergy Reactions Criticality Noted Date Comments Adhesive Tape 03/08/2022 Latex 03/08/2022 Sulfa Antibiotics 03/08/2022 Medications apixaban (ELIQUIS) 5 MG tablet Take 5 mg by mouth in the morning and 5 mg in the evening. Active metoprolol succinate XL (TOPROL-XL) 200 MG 24 hr tablet Take 200 mg by mouth 1 (one) time each day Do not crush or chew. Active atorvastatin (LIPITOR) 20 MG tablet Take 20 mg by mouth 1 (one) time each day Active Cholecalciferol 25 MCG (1000 UT) tablet dispersible Take 1 capsule by mouth 1 (one) time each day Active dilTIAZem CD (CARDIZEM CD) 180 MG 24 hr capsule Take 180 mg by mouth in the morning and 180 mg in the evening. Active lisinopril 20 MG tablet Take 10 mg by mouth 1 (one) time each day Active Active Problems Problem Noted Date Diagnosed Date Hypertension 07/14/2022 Stage 3b chronic kidney disease 07/14/2022 Vitamin D deficiency 02/25/2014 Renal insufficiency 02/25/2014 Hypercholesterolemia 02/25/2014 Atrial fibrillation 02/25/2014 Benign essential hypertension 02/07/2013 Diabetes mellitus with renal manifestations, type II or unspecified type, not stated as uncontrolled 09/10/2010 Family History Medical History Relation Comments Heart disease Father Relation Status Comments Father Social History Tobacco Use Types Packs/Day Years Used Date Smoking Tobacco: Never Smokeless Tobacco: Never Alcohol Use Standard Drinks/Week Comments Never 0 (1 standard drink = 0.6 oz pur e alcohol) Comments Unknown Sex and Gender Information Value Date Recorded Sex Assigned at Not on file Legal Sex Female 5:20 PM EST Gender Identity Not on file Sexual Orientation Not on file Last Filed Vital Signs Vital Sign Reading Time Taken Comments Blood Pressure 118/80 03/13/2023 1:19 PM EDT Pulse 75 03/13/2023 1:19 PM EDT Temperature - - Respiratory Rate - - Oxygen Saturation 99% 04/04/2022 1:19 PM EDT Inhaled Oxygen Concentration - - Weight 111 kg (244 lb) 03/13/2023 1:19 PM EDT Height - - Body Mass Index - - Plan of Treatment Health Maintenance Due Date Last Done Comments Pneumococcal Vaccine: 65+ Ye ars (1 of 2 - PCV) 1941 Diabetes: Hemoglobin A1C 03/08/2022 Diabetes: Ophthalmology Exam 03/08/2022 Diabetes: Pedal Pulse Checked 03/08/2022 Diabetes: Sensory Foot Exam 03/08/2022 Diabetes: Visual Foot Exam 03/08/2022 Influenza Vaccine (#1) 2024 Hepatitis B Vaccine Aged Out No longe r eligible based on patient's age to complete this topic Insurance unit [address] [place] [address] MED[address] [place] [address] MEDICARE Care Teams Grey Stock Recorder Relationship Specialty Start Date End Date Tati Corona MD [address] [place] [id number] PCP - General Internal Medicine 03/09/22
--- OUTSIDE RECORDS SUMMARY | 2024-07-30 12:43 | XMS_ITS | Encounter Summary ---
Author Organization [facility] Address [address] [place] [address] Care Team Providers Care Videogame Designer Name Role Phone Yuki Corona MD Primary Care Provider [phone] Reason for Visit * Reason Comments Hospital Follow-up Encounter Details Date Type Department Care Team (Late st Contact Info) Description 07/16/2024 12:40 PM EST Office Visit [facility] - [address] [place] [id number] Justine Gomez PA [address] [place], [place] [id number] Chest pain, unspecified type (Primary Dx); Permanent atrial fibrillation (CMS/HCC); Primary hypertension; LBBB (left bundle branch block); Pre-syncope; Tachy-mireya syndrome (CMS/HCC) Social History Tobacco Use Types Packs/Day Years [...] on file documented as of this encounter Last Filed Vital Signs Vital Sign Reading [...] Mass Index 39.85 07/16/2024 12:45 PM EST documented in this encounter Progress Notes * ABDELRAHMAN Maldonado - 07/16/2024 12:40 PM EST Please call with any questions or concerns Justine QUICK-C [phone] [facility] [address] [place] [id number] When you feel lightheaded sit down move arms and legs briskly * ABDELRAHMAN Maldonado - 07/16/2024 12:40 PM EST Images from the original note were not included. PRIMARY CHIP DRIER: Jose Luis Ricardo MD PCP: MD Paola Hale is a 89 y.o. old female Past medical history includes ER Evaluation 06/20 for presyncope felt to be orthostatic hypotension - Permanent A-fib anticoagulated for stroke reduction remains on full dose based on renal function, age and weight. 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 97% Morbid obesity intentionally has lost 85 pounds in a year and a half. Stable right kidney mass followed by Dr Lebron [facility] Hypertension Cardiac testing -Echo May 2021 severely dilated left atrium EF 55 to 60% with left bundle branch block, moderate mitral digitation mild pulmonary hypertension She presents today for evaluation of her presyncope explains she had a doctor's appointment that morning did not eat nor take in fluids because she gets so anxious about going to the doctors. She wasstanding getting ready felt lightheaded sat down and her son brought her to the ER. She was given IV fluids thought it was a little bit of orthostasis based on her renal function by the time she was in the ER she felt better and was discharged home. She states this occurs about once a year with a prodrome of feeling lightheaded, denies syncope, chest pain at rest or exertion, dyspnea at rest or exertion, orthopnea, PND, palpitations, lower leg edema. She admits she is becoming more sedentary and does not walk like she should. ACTIVE MEDICATIONS: Outpatient Medications Marked as Taking for the 07/16/24 encounter (Office Visit) with ABDELRAHMAN Maldonado Medication Sig Dispense Refill amLODIPine (NORVASC) 2.5 mg tablet Take 1 Tablet by mouth daily. apixaban (Eliquis) 5 mg tablet Take 1 Tablet by mouth 2 times daily. atorvastatin (LIPITOR) 20 mg tablet Take 20 mg by mouth daily. cholecalciferol (VITAMIN D-3) 25 mcg (1,000 unit) capsule Take 1 Capsule by mouth three times a week. metoprolol succinate (TOPROL-XL) 100 mg 24 hr tablet TAKE 1 TABLET BY MOUTH EVERY DAY 90 tablet 3 ALLERGIES: Allergies Allergen Reactions Adhesive Tape-Silicones Adhesive Bandage Latex Sulfa (Sulfonamide Antibiotics) FAMILY HISTORY: Family History Problem Relation Name Age of Onset Stroke Mother Heart attack Father Coronary artery disease Father Breast cancer Aunt Maternal Breast cancer Other Mat. Cousin SOCIAL HISTORY: Social History Tobacco Use Smoking status: Former Smokeless tobacco: Never Substance Use Topics Alcohol use: Never PHYSICAL EXAM: Blood pressure 128/76, pulse 85, height 1.67 m (65.75 ), weight 111 kg (245 lb), SpO2 98%. Body mass index is 39.85 kg/m??. Physical Exam Constitutional: General: She is not in acute distress. Appearance: Normal appearance. She is obese. She is not diaphoretic. Eyes: Pupils: Pupils are equal, round, and reactive to light. Neck: Vascular: No carotid bruit. Cardiovascular: Rate and Rhythm: Normal rate. Rhythm irregular. Heart sounds: Normal heart sounds. Pulmonary: Breath sounds: Normal breath sounds. Abdominal: Palpations: Abdomen is soft. Musculoskeletal: General: No swelling. Cervical back: No rigidity. Skin: General: Skin is warm and dry. Coloration: Skin is not jaundiced. Neurological: General: No focal deficit present. Mental Status: She is alert and oriented to person, place, and time. Psychiatric: Mood and Affect: Mood normal. EKG: afib V Paced PAST MEDICAL HISTORY: Patient Active Problem List Diagnosis Date Noted Elevated alkaline phosphatase level 08/17/2023 Pulmonary hypertension (CMS/HCC) 08/17/2023 Pre-syncope 08/17/2023 Tachy-mireya syndrome ([facility]) 07/19/2023 CHF (congestive heart failure) ([facility]) 10/18/2022 Elevated troponin 10/18/2022 Lower extremity edema 10/18/2022 Dizzy 08/05/2022 Hypercholesterolemia 02/01/2022 HERIBERTO (obstructive sleep apnea) 07/30/2021 Diabetes mellitus with stage 3 chronic kidney disease ([facility]) 07/29/2021 Venous insufficiency 07/29/2021 Secondary peripheral vascular disease ([facility]) 07/29/2021 Atrial fibrillation ([facility]) 03/15/2021 Diabetes mellitus ([facility]) 03/15/2021 Hypertension 03/15/2021 LBBB (left bundle branch block) 03/15/2021 Morbid obesity ([facility]) 03/15/2021 Bradycardia 12/25/2020 Chest pain 12/25/2020 As per AHA guidelines and previously established plan of care by Dr. Jose Luis Ricardo MD we discussed the following today: ASSESSMENT/PLAN: Problem List Items Addressed This Visit Atrial fibrillation ([facility]) Chest pain - Primary Relevant Orders ECG 12 lead (Completed) Hypertension LBBB (left bundle branch block) Pre-syncope Tachy-mireya syndrome ([facility]) Presyncope in the setting of poor p.o. intake most likely orthostatic explained as soon as she feltlightheaded she should sit down and move her arms and legs make sure she is well-hydrated. Symptomsdid not correlate to arrhythmia. Stage IV permanent A-fib rate controlled anticoagulated on full dose Eliquis based on weight greater than 60 kg, creatinine less than 1.5 despite age greater than 80. No recent bleeding events or falls. Tachybradycardia syndrome underlying Medtronic leadless pacemaker continue quarterly remote monitoring and full device interrogation as scheduled. Hypertension initial elevated repeat well-controlled reviewed the importance of sodium restriction well understood. Obesity she has plateaued with weight reduction is extremely sedentary suggested a walking program along with continued diet modifications. Thank you for allowing us to participate in the care of this patient. Today's documentation was made using voice recognition software.This note may contain grammatical errors secondary to this software. Cosigned by Fernanda Ricardo MD at 07/29/2024 9:17 PM EST documented in this encounter Plan of Treatment Upcoming Encounters Date Type Department Care Team (Late st Contact Info) Description 08/29/2024 1:00 PM EDT Ancillary Procedure [facility] - [address] [place] [address] 01/21/2025 1:10 PM EDT Office Visit [facility] - [address] [place] [address] Justine Gomez PA [address] [place] [address] documented as of this encounter Procedures Procedure Name Priority Date/Time Associated Diagnosis Comments ECG 12-LEAD Routine 07/16/2024 1:10 PM EST Chest pain, unspecified type documented in this encounter Results * ECG 12 lead (07/16/2024 1:10 PM EST) Ventricular Rate ECG 85 BPM GEMUSE Atrial Rate 85 BPM GEMUSE QRS Duration 150 ms GEMUSE Q-T Interval 406 ms GEMUSE QTc 483 ms GEMUSE R [place] 86 degrees GEMUSE T [place] -49 degrees GEMUSE ECG Interpretation afib V paced Left bundle branch block Abnormal ECG When compared with ECG of 21-JUL-2023 08:45, Confirmed by IRINA RICARDO ([id number]) on 07/18/2024 9:18:12 AM GEMUSE 07/16/2024 12:5 1 PM EST 07/18/2024 9:18 AM EST us Justine QUICK ECG ORDERABLES Edited Result - Final GEMUSE documented in this encounter Visit Diagnoses Diagnosis Chest pain, unspecified type- Primary Permanent atrial fibrillation (CMS/HCC) Atrial fibrillation Primary hypertension Unspecified essential hypertension LBBB (left bundle branch block) Other left bundle branch block Pre-syncope Syncope and collapse Tachy-mireya syndrome (CMS/HCC) Sinoatrial node dysfunction documented in this encounter Care Teams Videogame Designer Relationship Specialty Start Date End Date Yuki Corona MD [address] [place] [address] PCP - General Internal Medicine 01/18/21 documented as of this encounter
== END 2024-07-30 12:18 | disposition home or self-care (01) ==
PROVIDERS: Visit Provider Internal Medicine Nephrology
DX: N18.31 Chronic kidney disease, stage 3a (principal); I10 Essential (primary) hypertension; N28.89 Other specified disorders of kidney and ureter
CPT/HCPCS: 99214

== ENCOUNTER → 2024-07-30 11:30 | Outpatient (BNVA) | payer MEDICARE, BC, SELFPAY | PROVIDERS: Visit Provider Internal Medicine Nephrology | DX: I12.9 Hypertensive chronic kidney disease with stage 1 through stage 4 chronic kidney disease, or unspecified chronic kidney disease (principal); N18.31 Chronic kidney disease, stage 3a; N28.89 Other specified disorders of kidney and ureter; Z95.0 Presence of cardiac pacemaker | CPT/HCPCS: 99212 ==

== ENCOUNTER 2025-01-28 13:17 | Outpatient (AMB) | payer MEDICARE, BC, SELFPAY ==
--- NOTE | 2025-01-28 13:35 | HO.NEPHOV_ITS ---
Vital Signs 01/28/25 13:36 Height 5 ft 5 in Weight 248 lb 8 oz BMI 41.3 BP 154/100 H Blood Pressure Location Lt brachial Position Sitting Pulse 94 Pulse Source Pulse Oximeter Pulse Oximetry (%) 99 Oxygen Delivery Method Room Air Intake Visit Reasons: 6mon follow-up w/labs-Conf Shear Operator Helper Required: No Accompanied by: Son Allergies adhesive tape Allergy (Verified 01/28/25 13:36) Unknown latex Allergy (Verified 01/28/25 13:36) Unknown Sulfa (Sulfonamide Antibiotics) Allergy (Verified 01/28/25 13:36) Unknown HPI Comments Details: Paola in follow-up of her chronic kidney disease and hypertension. She had a pacemaker put in and ever since her energy levels are better. She is known to have renal mass and is closely followed up by Dr. Lebron. Her blood pressure had been a bit labile lately. She denies any chest pain, shortness of breath, paroxysmal nocturnal dyspnea, orthopnea, pedal edema, orthostatic symptoms, weight loss, night sweats, hematuria. She does not take any nonsteroidal anti- inflammatories. She was accompanied by her son during this visit. [facility] Medical History (Updated 09/14/23 @ 20:34 by George Ayala MD) Pacemaker (~07/2023) Hypertension Chronic kidney disease, stage 3b Family History Father Hypertension Social History Alcohol intake: never Review of Systems Const All systems reviewed & are unremarkable except as noted in HPI and below Physical Exam Const General: comfortable and no acute distress Orientation/consciousness: patient oriented x3 HEENT Head: Yes normocephalic Mouth: Normal oral and palatal mucosa present Eyes EOM: EOMs intact bilaterally Neck Neck: Yes supple Resp Auscultation: clear to auscultation bilaterally Cardio Jugular venous distension: no JVD Rate: regular rate GI Palpation (GI): Soft to palpation Auscultation: normal bowel sounds General: Yes no CVA tenderness Back/Spine/Pelvis Back: no CVA tenderness Skin General skin exam: no rashes or lesions noted Neuro General: patient oriented x3 and moves all extremities Extrem General: Yes no pedal edema Assessment & Plan Assessment & Plan (1) CKD (chronic kidney disease) stage 3, GFR 30-59 ml/min: Code(s): N18.30 - Chronic kidney disease, stage 3 unspecified Category: Medical Qualifiers: Chronic kidney disease stage 3 subtype: stage 3a (GFR 45-59) Qualified Code(s): N18.31 - Chronic kidney disease, stage 3a (2) Renal mass: Code(s): N28.89 - Other specified disorders of kidney and ureter Category: Medical (3) Hypertension: Code(s): I10 - Essential (primary) hypertension Category: Medical Qualifiers: Hypertension type: primary hypertension Qualified Code(s): I10 - Essential (primary) hypertension Louie Guevara has stage 3 chronic kidney disease. Her renal functions are pretty stable. Her blood pressure is well controlled. She just takes metoprolol. She monitors her blood pressure pretty closely at home. She should continue on amlodipine 2.5 mg once daily. She closely follows up with the Dr. Lebron her urologist for her renal mass ( has a F/U appointment ). She does not have any B symptoms. She has a pacemaker and her heart rate is well controlled. I did not make any other medication changes today. I ordered follow-up blood work and follow-up appointment was given. Orders: Orders Creatinine 6 Months I10 - Essential (primary) hypertension, N18.31 - Chronic kidney disease, stage 3a, N28.89 - Other specified disorders of kidney and ureter Blood Urea Nitrogen 6 Months I10 - Essential (primary) hypertension, N18.31 - Chronic kidney disease, stage 3a, N28.89 - Other specified disorders of kidney and ureter Electrolytes 6 Months I10 - Essential (primary) hypertension, N18.31 - Chronic kidney disease, stage 3a, N28.89 - Other specified disorders of kidney and ureter Calcium 6 Months I10 - Essential (primary) hypertension, N18.31 - Chronic kidney disease, stage 3a, N28.89 - Other specified disorders of kidney and ureter Coding Level of Care Code Est Pt Level 4 (52560) Diagnoses Stage 3a chronic kidney disease N18.31 Chronic kidney disease stage 3 subtype: stage 3a (GFR 45-59) Renal mass N28.89 Primary hypertension I10 Hypertension type: primary hypertension
[2025-01-28 13:36] VITALS: BP 154/100; PULSE 94; O2SAT 99; BMI 41.3
--- OUTSIDE RECORDS SUMMARY | 2025-01-28 14:30 | XMS_ITS | Clinical Summary ---
Author Organization [facility] Address [address] [facility] [address] [place] [address] Phone Care Team Providers Care Fire Fighters Dispatcher Name Role Phone Tati Corona MD Primary Care Provider [phone] Allergies Active Allergy Reactions Criticality Noted Date [...] Due Date Last Done Comments Pneumococcal Vaccine: 50+ Ye ars (1 of 2 - PCV) 1954 Diabetes: Hemoglobin A1C 03/08/2022 Diabetes: Ophthalmology Exam 03/08/2022 Diabetes: Pedal Pulse Checked 03/08/2022 Diabetes: Sensory Foot Exam 03/08/2022 Diabetes: Visual Foot Exam 03/08/2022 Influenza Vaccine (#1) 2025 Hepatitis B Vaccine Aged Out No longe r eligible based on patient's age to complete this topic Insurance unit [address] [place] [address] [address] [place] [address] Medicare Care Teams Fire Fighters Dispatcher Relationship Specialty Start Date End Date Tati Corona MD [address] [place] [id number] PCP - General Internal Medicine 03/09/22
--- OUTSIDE RECORDS SUMMARY | 2025-01-28 14:30 | XMS_ITS | Clinical Summary ---
Author Organization [facility] Address [address] [place] [address] Care Team Providers Care Forest Fire Specialist Supervisor Name Role Phone Deven Estrella MD Primary Care Provider [phone] Medications Pantoprazole Sodium (PROTONIX) 20 MG EC [...] - 1-dose 75+ series) 2012 COVID-19 Vaccine ( - 2023-2 5 season) 2024 Influenza (#1) 2025 HPV Vaccine (No Doses Required) Completed Hep A Aged Out No longer eligi [...] Smear Discontinued Zoster (Zostavax) Discontinued Care Teams Forest Fire Specialist Supervisor Relationship Specialty Start Date End Date Deven Estrella MD [address] [address] PCP - General 01/16/23
--- OUTSIDE RECORDS SUMMARY | 2025-01-28 14:30 | XMS_ITS | Clinical Summary ---
Author Organization [address] [place] [address] [place] [phone] Phone Care Team Providers Care Early Education Teacher Name Role Phone Yuki Corona MD Primary Care Provider [phone] Allergies Active Allergy Reactions Criticality Noted Date Comments Adhesive Tape-Silicones 03/15/2021 Adhesive Bandage Latex 03/15/2021 Sulfa (Sulfonamide Antibiotics) 09/2020 Medications metoprolol succinate (TOPROL-XL) 100 mg 24 hr tabletIndications :Sick sinus syndrome ([facility] V24, CMS/[facility] V28),Permanent atrial fibrillation (CMS/[facility] V24, [facility] V28) TAKE 1 TABLET BY MOUTH EVERY DAY 90 tablet 3 4 Active amLODIPine (NORVASC) 2.5 mg tablet Take 1 Tablet by mouth daily. Active atorvastatin (LIPITOR) 20 mg tablet Take 20 mg by mouth daily. Active cholecalciferol (VITAMIN D-3) 25 mcg (1,000 unit) capsule Take 1 Capsule by mouth three times a week. Active Eliquis 5 mg tablet TAKE 1 TABLET TWICE A DAY 180 tablet 3 5 Active Active Problems Problem Noted Date Diagnosed Date Elevated alkaline phosphatase level 08/17/2023 Pulmonary hypertension (CMS/[facility] V24, CMS/[facility] V28 ) 08/17/2023 Pre-syncope 08/17/2023 Tachy-shaun syndrome (CMS/[facility] V24, CMS/[facility] V28) 07/19/2023 CHF (congestive heart failure) (CMS/[facility] V24, CMS /[facility] V28) 10/18/2022 Elevated troponin 10/18/2022 Lower extremity edema [...] mellitus with stage 3 chronic kidney disease ([facility] V24, [facility] V28) 07/29/2021 Venous insufficiency 07/29/2021 Overview (05/17/2024): Last Assessment & Plan: Her leg edema has been better now that she is lost weight. Again we trialed her on a diuretic and this worsened her kidney function. We will continue to monitor this off her diuretic. Secondary peripheral vascular disease ([facility] V 24) 07/29/2021 Atrial fibrillation ([facility] V24, [facility] V28) 1 Overview (05/17/2024): Last Assessment & Plan: Her atrial fibrillation has been well controlled. She is doing well on her Eliquis. We did do a Holter monitor which showed occasionally low heart rates. She did meet with Dr. Keyes for evaluation. It was suggested that she have a implantable loop recorder placed. She has not had this done. She states that the office never called to set her up for this. I have ordered this for her so we can move forward with this. She is in agreement to having it done. She does understand the benefit of doing this. Diabetes mellitus ([facility] V24, [facility] V28) 09/2020 Hypertension 03/15/2021 Overview (05/17/2024): Last Assessment & [...] We will continue to monitor. Morbid obesity ([facility] V24, [facility] V28) 2020 Bradycardia 12/25/2020 Overview (05/17/2024): Last Assessment & [...] Encounters Date Type Department Care Team Description 01/21/2025 1:10 PM EDT Office Visit [facility] - [facility] [address] [place] [address] Justine Gomez PA Pre-syncope (Primary Dx); Chest pain, unspecified type; Permanent atrial fibrillation ([facility] V24, [facility] V28); Primary hypertension; Morbid obesity ([facility] V24, [facility] V28) 12/02/2024 2:35 PM EDT Ancillary Procedure [facility] - [facility] [address] [facility] [address] [place] [address] 11/13/2024 Telephone [facility] - [facility] [address] [facility] [address] [place] [phone] Justine Gomez PA Med Refill from Last 3 Months Surgical History Surgery Date Site/Laterality Comments CHOLECYSTECTOMY PROCEDURE: HISTORICAL CHOLECYSTECTOMY OTHER SURGICAL HISTORY PROCEDURE: SKIN CYST; COMMENT: benign breast cyst removal BREAST BIOPSY Left PROCEDURE: [place] BIOPSY BREAST OPEN INCISIONAL; COMMENT: benign VAGINAL DELIVERY PROCEDURE: HISTORICAL VAGINAL DELIVERY INSERT / REPLACE / REMOVE PACEMAKER Medical History Medical History Date Comments CKD (chronic kidney disease) , stage III ([facility] V24, [facility] V28) DX:CKD (chronic kidney dise ase), stage III ([facility]) Obesity DX:Obesity Peripheral vascular disease ([facility] V24) DX:Peripheral vascular disea se ([facility]) Vitamin D deficiency DX:Vitamin D deficiency Elevated alkaline phosphatase level DX:Elevated alkaline phosphatase level Diabetes mellitus with stage 3 chronic kidney disease ([facility] V24, [facility] V28) DX:Diabetes mellitus with st age 5 chronic kidney disease (HCC) Morbid obesity ([facility] V24, [facility] V28) DX:Morbid obesity (HCC) Stasis dermatitis DX:Stasis derm atitis Abnormal findings on diagnos tic imaging of breast DX:Abnormal findings on diag nostic imaging of breast; COMMENT: historical History of miscarriage DX:Histor y of miscarriage History of renal insufficiency syndrome DX:History of renal insufficiency syndrome Severe obesity ([facility] V24, [facility] V28) DX:Severe obesity (HCC) Venous insufficiency DX:Venous i nsufficiency Miscarriage DX:Miscarriage Renal insufficiency syndrome DX: Renal insufficiency syndrome Hyperkalemia DX:Hyperkalemia 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 ([facility] V24, [facility] V28) DX:Type 2 diabetes mellitus with peripheral vascular [...] Sign Reading Time Taken Comments Blood Pressure 142/78 01/21/2025 1:25 PM EDT Pulse 92 01/21/2025 1:20 PM EDT Temperature - - Respiratory Rate - - Oxygen Saturation 98% 01/21/2025 1:06 PM EDT Inhaled Oxygen Concentration - - Weight 113 kg (250 lb) 01/21/2025 1:06 PM EDT Height 165.1 cm (5' 5 ) 01/21/2025 1:06 PM EDT Body Mass Index 41.6 01/21/2025 1:06 PM EDT Plan of Treatment Upcoming Encounters Date Type Department Care Team (Late st Contact Info) Description 09/01/2025 1:30 PM EDT Ancillary Procedure [facility] - [facility] [address] [facility] [address] [place] [address] Health Maintenance Due Date Last Done Comments Diabetes: Annual Foot Exam 1945 Diabetes: Annual Retina Eye Exam 1945 RSV Immunization Adult Patients (1 - 1-dose 75+ series) 2012 Zoster Vaccines (1 of 2) 06/24/2014 04/29/2014 DTaP,Tdap,and Td Vaccines (3 - Td or Tdap) 09/10/2020 09/10/2010, 11/10/2000 Cholesterol Screening (Lipid Panel) 05/10/2022 Falls Risk Assessment 05/10/2022 Medicare Annual Wellness Visit 05/10/2022 Osteoporosis Screening (Bone Density Screening) 05/10/2022 Social Influencers of Health Screening 05/10/2022 Hypertension/CHF/CAD Annual BMP Blood Test 05/21/2022 Diabetes: Blood Sugar Control Test (HGBA1C) 05/27/2022 COVID-19 Vaccine ( season) 2024 09/27/2021, 03/09/2021, 07/22/2020, Additional history exists Depression Screening 06/12/2024 Influenza Vaccine (#1) 2025 , 02/18/2020, 03/11/2019, Additional history exists Pneumococcal [...] age to complete this topic Meningococcal B Vaccine Aged Out No l onger eligible based on patient's age to complete this topic RSV Immunization Patients Under 20 months Aged Out No longer eligible based on patient's age to complete this topic Varicella Vaccines Aged Out No longer eligible based on patient's age to complete this topic Medical Devices Implanted Type Area Die Hardener Device Identifier Shelf Expiration Date Model / Serial / Lot Medt-Card [id number] Implanted:01/2024 (Quantity not on file) Cardiac Pacemaker [employer] - CARDIAC RHYTH-CRDM [id number] / [id number] / Medt-Card Micra Vr Tcp [id number] Implanted:01/2024 (Quantity not on file) Cardiac Pacemaker [employer] - CARDIAC RHYTH-CRDM MICRA VR TCP / [id number] / Procedures Procedure Name Priority Date/Time Associated Diagnosis Comments CARDIAC DEVICE CHECK- REMOTE- MURJ Routine 12/02/2024 2:32 PM EDT from Last 3 Months Results * Cardiac device check - Remote- MURJ (12/02/2024 2:32 PM EDT) Date Time Interrogation Session [id number] CV DEVICE CHECK Type Interrogation Session Remote CV DEVICE CHECK Implantable Pulse Generator Die Hardener MDT CV DEVICE CHECK Implantable Pulse Generator Type IPG CV DEVICE CHECK Implantable Pulse Generator Model [id number] CV DEVICE CHECK Implantable Pulse Generator Serial Number [id number] CV DEVICE CHECK Implantable Pulse Generator Implant Date 20230720 CV DEVICE CHECK Battery Remaining Longevity 96.0 CV DEVICE CHECK Battery Voltage 3.020 CV D EVICE CHECK Battery REFINERY OPERATOR ALKYLATION Trigger 2.558 CV DEVICE CHECK Battery Status Middle of Service CV DEVICE CHECK Lead Channel Sensing Intrinsic Amplitude 8.100 CV DEVICE CHECK Lead Channel Setting Sensing Sensitivity 2.00 CV DEVICE CHECK Lead Channel Impedance Value 520 CV DEVICE CHECK Lead Channel Pacing Threshold Amplitude 0.500 CV DEVICE CHECK Lead Channel Pacing Threshold Pulse Width 0.2 CV DEVICE CHECK Lead Channel RV Pacing Threshold Date 2024-11-15 CV DEVICE CHECK Lead Channel Setting Pacing Amplitude 1.000 CV DEVICE CHECK Lead Channel Setting Pacing Pulse Width 0.2 CV DEVICE CHECK Shaun Setting Mode (NBG Code) VVIR CV DEVICE CHECK Shaun Setting Lower Rate Limit 60 CV DEVICE CHECK Shaun Setting Maximum Sensor Rate 120 CV DEVICE CHECK Date of Service 2024-12-02 CV DEVICE CHECK Anatomical Region Laterality Modality Device Interroga tion 11/15/2024 8:1 7 AM EDT Impressions 12/02/2024 10:50 AM EDT Normal Remote: No Events * Normal Device Function * Alerts or events: None * Battery: OK, 8.00 yrs * Sensing, impedance and thresholds reviewed * Programmed parameters reviewed * Presenting rhythm reviewed * Heart Rate Histograms reviewed * No significant changes noted Narrative Procedure Note Fernanda Keyes MD - 12/02/2024 IMPRESSION: Normal Remote: No Events * Normal Device Function * Alerts or events: None * Battery: OK, 8.00 yrs * Sensing, impedance and thresholds reviewed * Programmed parameters reviewed * Presenting rhythm reviewed * Heart Rate Histograms reviewed * No significant changes noted Fernanda Keyes MD CV IMPLANTABLE CARDIAC DEV ICE PROCEDURES Final Result from Last 3 Months Insurance [address] [place] [address] MEDICARE [facility] Care Teams Early Education Teacher Relationship Specialty Start Date End Date Yuki Corona MD [address] [place] [address] PCP - General Internal Medicine 01/18/21
--- OUTSIDE RECORDS SUMMARY | 2025-01-28 14:30 | XMS_ITS ---
Author Name [facility] Organization Unknown Results Test Name/Text Value Interpretation Date Range Source Troponin T SerPl-mCnc 11.0 ng/L Normal 06/20/2024 - 15 [facility] Delta 1.0 Normal 06/20/2024 - 3 [facility] POC Glucose 128.0 mg/dL Above high normal 06/20/2024 65 - 99 [facility] Troponin T SerPl-mCnc 12.0 ng/L Normal 06/20/2024 - 15 [facility] Delta NO PREVIOUS RESULT Normal 06/20/2024 - 3 [facility] Creat SerPl-mCnc 1.1 mg/dL Normal 06/20/2024 0.4 - 1.1 HH CCT Anion Gap Bld-sCnc 14.0 Normal 06/20/2024 7 - 17 [facility] Glucose SerPl-mCnc 130.0 mg/dL Above high normal 06/20/2024 65 - 99 [facility] Albumin SerPl-mCnc 3.8 g/dL Normal 06/20/2024 3.4 - 4.8 [facility] AST SerPl-cCnc 31.0 U/L Normal 06/20/2024 10 - 50 [facility] T Chloride SerPl-sCnc 100.0 mmol/L Normal 06/20/2024 98 - 1 07 [facility] ALT SerPl-cCnc 43.0 U/L Normal 06/20/2024 10 - 50 [facility] T Prot SerPl-mCnc 7.3 g/dL Normal 06/20/2024 6.3 - 8.[address] Bilirub SerPl-mCnc 1.0 mg/dL Normal 06/20/2024 0.2 - 1 [facility] Calcium SerPl-mCnc 10.1 mg/dL Normal 06/20/2024 8.7 - 10. 5 [facility] Sodium SerPl-sCnc 141.0 mmol/L Normal 06/20/2024 136 - 14 5 [facility] CO2 SerPl-sCnc 27.0 mmol/L Normal 06/20/2024 22 - 33 [facility] CCT BUN SerPl-mCnc 31.0 mg/dL Above high normal 06/20/2024 8 - 2 1 [facility] Albumin/Glob SerPl 1.1 Ratio Normal 06/20/2024 1 - 3 [facility] BUN/Creat SerPl 28.0 Ratio Above high normal 06/20/2024 10 - 25 [facility] Potassium SerPl-sCnc 4.7 mmol/L Normal 06/20/2024 3.4 - 5.3 [facility] GFR/BSA.pred SerPlBld QET-LKN-XpOJpx 49.0 Below low normal 06/20/2024 59 - [facility] ALP SerPl-cCnc 149.0 U/L Above high normal 06/20/2024 32 - 1 22 [facility] Globulin Ser Calc-mCnc 3.5 g/dL Normal 06/20/2024 1.5 - 3.9 [facility] PMV Bld Auto 10.9 fL Normal 06/20/2024 7.5 - 12.5 [facility] Lymphocytes num Bld Auto 1.73 Thou/uL Normal 06/20/2024 1.5 - 4.5 [facility] Hgb Bld-mCnc 16.8 g/dL Above high normal 06/20/2024 11.7 - 1 5.7 [facility] Imm Granulocytes num Bld Auto 0.03 Thou/uL Normal 06/20/2024 0 - 0.1 [facility] Hct VFr Bld Auto 49.8 % Above high normal 06/20/2024 35 - 47 [facility] Basophils/leuk NFr Bld Auto 0.7 % Normal 06/20/2024 [facility] Imm Granulocytes/leuk NFr Bld Auto 0.3 % Normal 06/20/2024 [facility] RDW RBC Auto-Rto 13.1 % Normal 06/20/2024 11.5 - 14.5 [facility] Lymphocytes/leuk NFr Bld Auto 19.5 % Normal 06/20/2024 [facility] Platelet num Bld Auto 222.0 Thou/uL Normal 06/20/2024 150 - 450 [facility] Neutrophils num Bld Auto 6.18 Thou/uL Normal 06/20/2024 2 - 7.5 [facility] MCH RBC Qn Auto 32.4 pg Above high normal 06/20/2024 27 - 31 [facility] Basophils num Bld Auto 0.06 Thou/uL Normal 06/20/2024 0 - 0.2 [facility] Monocytes/leuk NFr Bld Auto 6.8 % Normal 06/20/2024 [facility] MCV RBC Auto 96.0 fL Normal 06/20/2024 80 - 100 [facility] MCHC RBC Auto-mCnc 33.7 g/dL Normal 06/20/2024 30 - 36 [facility] Eosinophil/leuk NFr Bld Auto 3.0 % Normal 06/20/2024 [facility] RBC num Bld Auto 5.19 Mil/uL Normal 06/20/2024 4 - 5.4 [facility] Eosinophil num Bld Auto 0.27 Thou/uL Normal 06/20/2024 0 - 0.7 [facility] Monocytes num Bld Auto 0.6 Thou/uL Normal 06/20/2024 0.2 - 1.5 [facility] WBC num Bld Auto 8.9 Thou/uL Normal 06/20/2024 4 - 11 [facility] Neutrophils/leuk NFr Bld Auto 69.7 % Normal 06/20/2024 [facility] TROPONIN I HIGH SENSITIVE 33.48 ng/L Normal 07/20/2023 0 - [address] [facility] PRO B-TYPE NATRIURETIC PEPTIDE 2051.0 pg/mL Above high normal 07/20/2023 0 - 1800 [facility] R SODIUM 139.0 mmol/L Normal 07/20/2023 136 - 145 [facility] GLUCOSE 142.0 mg/dL Above high normal 07/20/2023 74 - 100 [facility] CHLORIDE 105.0 mmol/L Normal 07/20/2023 98 - 107 [facility] POTASSIUM SERUM 4.5 mmol/L Normal 07/20/2023 3.5 - 5.1 CT [facility] CO2 25.0 mmol/L Normal 07/20/2023 21 - 32 [facility] H CREATININE 1.47 mg/dL Above high normal 07/20/2023 0.55 - 1. [address] [facility] BUN 47.0 mg/dL Above high normal 07/20/2023 7 - [address] [facility] PATIENT FASTING? UNKNOWN Normal 07/20/2023 CT [facility] GFRE 36.0 Below low normal 07/20/2023 60 - CT [facility] TROPONIN I HIGH SENSITIVE 31.39 ng/L Normal 07/20/2023 0 - 54 [facility] PROTIME 15.2 secs Above high normal 07/20/2023 9 - 13 C [facility] INR 1.4 Normal 07/20/2023 [facility] MCH 31.0 PG Normal 07/20/2023 27 - 34 [facility] RDW 13.2 % Normal 07/20/2023 11.1 - 13.3 [facility] H MONOCYTES 7.0 % Normal 07/20/2023 0 - 12 [facility] BASOPHILS 1.0 % Normal 07/20/2023 0 - 2 [facility] MCHC 33.6 g/dL Normal 07/20/2023 31 - 36 [facility] RBC 5.19 M/uL Normal 07/20/2023 4 - 5.4 [facility] ABSOLUTE NUCLEATED RBC 0.0 K/uL Normal 07/20/2023 0 - 0.012 [facility] ABSOLUTE LYMPHS 1.2 K/uL Below low normal 07/20/2023 1.5 - 4.9 [facility] ABSOLUTE MONOS 0.8 K/uL Normal 07/20/2023 0.2 - 1.5 [facility] PLATELET COUNT 245.0 K/uL Normal 07/20/2023 150 - 480 CTP R MCV 93.0 fL Normal 07/20/2023 83 - 102 [facility] ABSOLUTE IMMATURE GRANULOCYTES 0.1 K/uL Normal 07/20/2023 0 - 0.3 [facility] HGB 16.3 g/dL Above high normal 07/20/2023 12.1 - 15.7 [facility] IMMATURE GRANULOCYTES 0.0 % Normal 07/20/2023 0 - 0.45 [facility] NUCLEATED RBC 0.0 % Normal 07/20/2023 0 [facility] WBC 11.2 K/uL Above high normal 07/20/2023 3.7 - 10.3 [facility] LYMPHS 11.0 % Below low normal 07/20/2023 16 - 50 CT [facility] ABSOLUTE EOS 0.1 K/uL Normal 07/20/2023 0 - 0.7 [facility] HCT 48.5 % Above high normal 07/20/2023 36 - 46 [facility] ABS[facility]UTE GRANULOCYTES 9.0 K/uL Above high normal 07/20/2023 2.2 - 7.3 [facility] GRANULOCYTES 80.0 % Above high normal 07/20/2023 23 - 78 [facility] EOSINOPHILS 1.0 % Normal 07/20/2023 0 - 6 [facility] H MPV 11.0 fL Normal 07/20/2023 8 - 12 [facility] ABSOLUTE BASO 0.1 K/uL Normal 07/20/2023 0 - 0.2 [facility] EPI CELLS 1+ Normal 07/20/[address] [facility] MUCOUS PRESENT Critically abnormal 07/20/2023 - [facility] RBC 0.0 /HPF Normal 07/20/2023 0 - [address] [facility] WBC 4.0 /HPF Above high normal 07/20/2023 0 - 0 C [facility] BACTERIA 1+ Critically abnormal 07/20/2023 - [facility] PROTEIN NEG Normal 07/20/2023 - [facility] COLOR YELLOW Normal 07/20/2023 - [facility] NITRITE NEG Normal 07/20/2023 - [facility] SPECIFIC GRAVITY 1.015 Normal 07/20/2023 1.005 - 1.[address] [facility] LEUK. ESTERASE SMALL Critically abnormal 07/20/2023 - [facility] APPEARANCE CLEAR Normal 07/20/2023 - [facility] BLOOD NEG Normal 07/20/2023 - [facility] GLUCOSE NEG Normal 07/20/2023 - [facility] UROBILINOGEN 0.2 MG/DL Normal 07/20/2023 - [facility] KETONES NEGATIVE Normal 07/20/2023 - [facility] BILIRUBIN NEGATIVE Normal 07/20/2023 - [facility] PH 6.0 Normal 07/20/2023 5 - [address] [facility] Encounters Encounter Type Encounter Reason Primary Diagnosis Location Date Emergency Dizziness and giddiness Dizziness and giddiness [place] [facility] 06/20/2024 Emergency NAUSEA DIZZINESS HX AFIB NAUSEA DIZZINESS HX AFIB [facility] 07/19/2023 Care Team Organization Name Specialty Phone Email Start Date End [facility] Sales Order Coordinator ([facility]) [facility] 01/27/2025 [facility] 10/23/2024 [place] [facility] 07/02/2024 08/28/2024 [place] [facility] 06/21/2024 [facility] TERESA DASH Primary Care 06/21/2024 [facility] provided,No Primary Care 07/20/2023 11/06/2023 [facility] No provided Primary Care 07/20/2023
== END 2025-01-28 13:56 | disposition home or self-care (01) ==
LOC: HO.HKAS 13:17
PROVIDERS: Visit Provider Internal Medicine Nephrology
DX: N18.31 Chronic kidney disease, stage 3a (principal); N28.89 Other specified disorders of kidney and ureter; I10 Essential (primary) hypertension
CPT/HCPCS: 99214

== ENCOUNTER → 2025-01-28 13:17 | Outpatient (BNVA) | payer MEDICARE, BC, SELFPAY | PROVIDERS: Visit Provider Internal Medicine Nephrology | DX: I12.9 Hypertensive chronic kidney disease with stage 1 through stage 4 chronic kidney disease, or unspecified chronic kidney disease (principal); N18.31 Chronic kidney disease, stage 3a; N28.89 Other specified disorders of kidney and ureter; Z79.899 Other long term (current) drug therapy | CPT/HCPCS: 99212 ==